=== PATIENT | female | born 1975 | race Caucasian/White ===

== ENCOUNTER 2020-03-16 11:04 | Emergency (ER) | payer OTHER, SELFPAY ==
--- NOTE | ~2020-03-16 | CT_ITS ---
EXAMINATION: CT abdomen pelvis w con DATE: 03/16/2020 13:11 INDICATION: Abdominal and low back pain TECHNIQUE: Computed tomography (CT) of the abdomen and pelvis was performed with 100 cc Omnipaque 350 intravenous contrast. Automated exposure control and iterative reconstruction technique were employe d. Exam dose: 1033.56 mGy-cm total exam DLP. COMPARISON: None. FINDINGS: The lung bases are clear of infiltrate or consolidation. Heart size is within normal range. No pericardial or pleural effusion. The liver, spleen, pancreas, adrenal glands and right kidney are unremarkable. No right urinary tract calculus or hydroureteronephrosis. There is a 2.5 x 5 mm proximal left ureteral calculus situated just beyond the left ureteropelvic macarena ction with moderately prominent left hydronephrosis and perinephric fluid and stranding. No other uri nary tract calculus or hydroureteronephrosis is evident. The urinary bladder, uterus, adnexal areas a re unremarkable. Normal caliber of the abdominal aorta. No intraperitoneal or retroperitoneal or pelvic mass lesion or lymphadenopathy. Normal appendix. No bowel obstruction, bowel wall thickening, pneumatosis or intraperitoneal free air . Included skeletal structures are unremarkable. IMPRESSION: 2.5 x 5 mm proximal left ureteral calculus with moderately prominent left left hydroneph rosis Reviewed, dictated and finalized at [facility]. Reviewed, dictated and finalized at location A. IMPRESSION: 2.5 x 5 mm proximal left ureteral calculus with moderately promine nt left left hydronephrosis
--- NOTE | ~2020-03-16 | XR_ITS ---
XR abdomen/kub 1V DATE: 03/16/2020 13:30 INDICATION: Left abdominal pain. Left proximal ureteral calcified stone TECHNIQUE: AP projection, 2 views COMPARISON: None FINDINGS: There is persistent left nephrogram and lack of IV contrast material within the collecting systems on the left compared to the right due to delay as result of obstruction by a proximal left ur eteral calcified calculus which is radiographically positive, situated at the lower L3 level. Normal excretion of contrast material by the right kidney. The the right ureter and the urinary bladd er appear unremarkable. Nonspecific bowel gas pattern, without evidence of obstruction. The psoas shadows are intact. Include d skeletal structures are unremarkable. IMPRESSION: 2.5 x 5 mm obstructing calcified proximal left ureteral calculus at lower L3 level, with delayed nephrogram on the left as a result Reviewed, dictated and finalized at [facility]. Reviewed, dictated and finalized at location A.
[2020-03-16 11:10] VITALS: BP 170/84; PULSE 82; RESP 18; TEMP 36.8; O2SAT 97
--- NOTE | 2020-03-16 11:21 | ED.ABDPAIN ---
HPI - Abdominal Pain General Chief Complaint: Abdominal Pain Stated Complaint: Lower Back Pain, Lower Abd Pain Time Seen by Provider: 03/16/20 11:18 Source: RN notes reviewed History of Present Illness HPI narrative: Patient presents emergency department from home for abdominal pain. Patient states symptoms began this morning. Pain is located in the left lower quadrant with radiation into the left back. Pain is described as sharp and stabbing associated with nausea and vomiting. Patient denies any fevers or chills chest pain shortness of breath or any other symptoms. She states she took ibuprofen this morning with minimal relief Related Data Home Medications Medication Instructions Recorded Confirmed ergocalciferol (vitamin D2) 03/16/20 Allergies Allergy/AdvReac Type Severity Reaction Status Date / Time codeine Allergy Mild Unknown Verified 03/16/20 11:15 Penicillins Allergy Mild Unknown Verified 03/16/20 11:15 zinc Allergy Mild Unknown Verified 03/16/20 11:15 Review of Systems Review of Systems: Narrative: Gen.: Denies fevers or chills ENT: Denies congestion Respiratory: Denies shortness of breath or cough CV: Denies chest pain or palpitations GI: See HPI denies burning, urgency, frequency or hematuria Musculoskeletal: Denies back pain or muscle pain Neuro: Denies numbness, tingling, weakness or focal weakness Skin: Denies rash Except as documented, all other systems reviewed and negative FOR[facility]LY [facility] Past Medical History Medical History (Updated 03/16/20 @ 15:50 by Abdifatah Bond DO) Patient denies significant medical history Social History Social History (Updated 03/16/20 @ 11:22 by Abdifatah Bond DO) Smoking packs per day: 0.25 Smoking cigarettes per day: 5.0 Gender identity (if verbalized by the patient): Male Exam Narrative: Exam Narrative: APPEARANCE: No acute distress, nontoxic, resting in bed HEENT: Normocephalic, atraumatic, OMM RESPIRATORY: No respiratory distress, clear to auscultation bilaterally with no rhonchi wheezing or rales CARDIOVASCULAR: RRR s murmur ABDOMINAL: Soft, nondistended, tender palpation left lower quadrant, no tenderness left upper quadrant, right upper quadrant right lower quadrant, no rebound or guarding, left flank tenderness MUSCULOSKELETAl: Moves all extremities. No clubbing, cyanosis or edema. NEURO: Awake and alert. Following commands, speech normal, no focal deficits SKIN:: Warm, dry. Normal Color PSYCHIATRIC: Normal affect/mood Course Course Emergency Course: Discussed with Dr. Frazier for urology presentation work-up. Reviewed CT scan and UA. This time feels patient may be discharged home with pain is under control with follow-up as an outpatient. Request Flomax be given Patient states pain is improved at this time Discussed with patient results of workup and diagnosis. Discussed need for follow-up with primary care, proper use of medication, and reasons to return to the emergency department. Patient understands and agrees to current treatment plan Vital Signs Vital signs: Vital Signs Temperature 98.2 F 03/16/20 11:10 Pulse Rate 82 03/16/20 11:10 Respiratory Rate 18 03/16/20 11:10 Blood Pressure 170/84 H 03/16/20 11:10 Pulse Oximetry 97 03/16/20 11:10 Temperature 98.2 F 03/16/20 11:10 Pulse Rate 89 03/16/20 13:20 Respiratory Rate 18 03/16/20 13:20 Blood Pressure 142/84 H 03/16/20 13:20 Pulse Oximetry 97 03/16/20 13:20 MDM - Abdominal Pain Lab Data Result diagrams: 03/16/20 11:24 03/16/20 11:24 Labs: Lab Results 03/16/20 03/16/20 03/16/20 Range/Units 11:24 11:24 11:24 WBC 13.4 H (4.5-10.0) K/mm3 RBC 4.72 (4.2-5.4) M/mm3 Hgb 14.4 (12.0-15.0) g/dL Hct 42.2 (37.0-47.0) % MCV 89.4 (80-100) fl MCH 30.5 (26-34) pg MCHC 34.1 (32-36) g/dl RDW 12.6 (11.5-14.5) % Plt Count 251 (150-375) k/mm3 MPV 10.6 H (7.4-10.4) fl Imm
[2020-03-16 11:42] LABS: Basophils Absolute Auto 0.1 K/mm3 (0.0-0.1); Basophils Percent Auto 0.5 % (0.2-1.2); Hematocrit 42.2 % (37.0-47.0); Hemoglobin 14.4 g/dL (12.0-15.0); Immature Granulocyte Absolute 0.04 K/mm3 (0.00-0.031); Immature Granulocyte Percent A 0.3 % (0-0.5); Lymphocytes Absolute Auto 1.25 K/mm3 (0.9-3.2); Lymphocytes Percent Auto 9.3 % (18.3-44.2); Mean Corpuscular HGB Conc 34.1 g/dl (32-36); Mean Corpuscular Hemoglobin 30.5 pg (26-34); Mean Corpuscular Volume 89.4 fl (80-100); Mean Platelet Volume 10.6 fl (7.4-10.4); Monocytes Percent Auto 7.2 % (2.6-8.5); Neutrophils Absolute Auto 11.1 K/mm3 (1.3-6.7); Neutrophils Percent Auto 82.7 % (45.5-73.1); Platelet Count Result 251 k/mm3 (150-375); Red Blood Count 4.72 M/mm3 (4.2-5.4); Red Cell Distribution Width 12.6 % (11.5-14.5); White Blood Count 13.4 K/mm3 (4.5-10.0)
[2020-03-16 11:49] LABS: Add Urine Microscopic? YES; Appearance Urine Cloudy (Clear); Bacteria Urine Trace /hpf; Bilirubin Urine Negative (Negative); Blood Urine Negative (Negative); Calcium Oxalate Crystals Urine Present /hpf; Color Urine Yellow (Yellow); Glucose Urine UA Negative (Negative); Ketones Urine Negative (Negative); Leukocyte Esterase Ur 1+ LEU/UL (Negative); Mucus Urine Heavy /lpf; Nitrate Urine Negative (Negative); Protein Urine 1+ mg/dL (Negative); Squamous Epithelial Cell Urine Many /hpf (Few); Urobilinogen Urine Negative mg/dL (<2.0)
[2020-03-16] MEDS: SODIUM CHLORIDE 0.9% IV 1,000 ML 999 ML IV CONT (11:59)
[2020-03-16] MEDS: ONDANSETRON INJ 4 MG/2 ML VIAL IV PUSH (11:59)
[2020-03-16 12:06] LABS: Alanine Aminotransferase 30 U/L (4-35); Albumin Level 4.8 g/dL (3.5-5.1); Alkaline Phosphatase 82 U/L (38-126); Aspartate Amino Transferase 32 U/L (14-36); Bilirubin,Total 0.7 mg/dL (0.2-1.3); Blood Urea Nitrogen 22 mg/dL (7-17); Calcium 9.2 mg/dL (8.4-10.2); Carbon Dioxide 24 mmol/L (22-30); Chloride 104 mmol/L (98-107); Estimated CRCL calculation 90 ml/min; Estimated Glomerular Filt Rate > 60; Glucose 111 mg/dL (65-105); Lipase 33 U/L (23-300); Potassium 4.3 mmol/L (3.4-5.0); Sodium 138 mmol/L (137-145)
[2020-03-16 13:20] VITALS: BP 142/84; PULSE 89; RESP 18; O2SAT 97
[2020-03-16 13:49] LABS: Lactic Acid Reflex 1.3 mmol/L (0.7-2.1)
[2020-03-16] MEDS: MORPHINE SULFATE 2 MG/ML INJ IV PUSH ×2 (14:03→14:49)
[2020-03-16] MEDS: SODIUM CHLORIDE 0.9% IV 50 ML 400 ML (14:03)
[2020-03-16] MEDS: PROMETHAZINE HCL 25 MG/ML AMPUL 12.5 MG IV PUSH (14:03)
[2020-03-16] MEDS: TAMSULOSIN HCL 0.4 MG CAPSULE PO (14:03)
== END 2020-03-16 16:16 | disposition home or self-care (01) ==
PROVIDERS: Emergency Provider Emergency Medicine
DX: N13.2 Hydronephrosis with renal and ureteral calculous obstruction (principal); N39.0 Urinary tract infection, site not specified; F17.210 Nicotine dependence, cigarettes, uncomplicated
CPT/HCPCS: 36415; 74018; 74177; 80053; 81001; 81025; 83605; 83690; 85025; 87040; 96374; 96375; 96376; 99284; A9270; J0131; J2270; J2405; J2550; J7030; Q9967

== ENCOUNTER 2020-03-19 14:21 | Outpatient (CLI) | payer OTHER, SELFPAY ==
--- NOTE | ~2020-03-19 | XR_ITS ---
XR abdomen/kub 1V 03/19/2020 14:46 Indication: Left ureteral stone and flank pain Procedure: KUB Comparison: CT and KUB dated 03/16/2020 Findings: There is calcification overlying the lower pole of the left kidney, consistent with renal s tone. No stones are identified in the expected course of the ureters. There are pelvic phleboliths. B owel gas pattern is nonobstructive. No acute osseous abnormality. Impression: 1: Left nephrolithiasis. Reviewed, dictated and finalized at location A. Impression: 1: Left nephrolithiasis.
== END 2020-03-19 14:22 | disposition home or self-care (01) ==
PROVIDERS: PCP Registered Nurse; Visit Provider Urology
DX: N20.0 Calculus of kidney (principal)
CPT/HCPCS: 74018

== ENCOUNTER 2020-03-22 09:17 | Outpatient (CLI) | payer OTHER, SELFPAY ==
[2020-03-22 10:16] LABS: Prothrombin Time 13.1 Seconds (11.1-14.7)
[2020-03-22 10:17] LABS: Partial Thromboplastin Time 27.1 SECONDS (22.3-36.8)
[2020-03-22 10:24] LABS: Beta HCG Quantitative < 2.39 mIU/ML
== END 2020-03-22 09:18 | disposition home or self-care (01) ==
LOC: ANHSURGERY 09:20
PROVIDERS: PCP Registered Nurse; Visit Provider Urology
DX: Z01.818 Encounter for other preprocedural examination (principal); N20.0 Calculus of kidney
CPT/HCPCS: 36415; 84702; 85610; 85730; 87086

== ENCOUNTER 2020-03-27 00:23 | Outpatient (CLI) | payer OTHER, SELFPAY ==
[2020-03-27 17:43] LABS: SARS-CoV-2 RNA PCR Negative
== END 2020-03-27 00:24 | disposition home or self-care (01) ==
LOC: ANHCOVIDDT 00:24
PROVIDERS: PCP Registered Nurse; Visit Provider Urology
DX: Z01.812 Encounter for preprocedural laboratory examination (principal); Z20.828 Contact with and (suspected) exposure to other viral communicable diseases
CPT/HCPCS: 87635; C9803; U0003

== ENCOUNTER 2020-03-29 01:49 | Day surgery (SDC) | payer OTHER, SELFPAY ==
[2020-03-20 15:09] VITALS: BMI 33.9
[2020-03-29] VITALS (9 sets, daily range): BP systolic 102–132; BP diastolic 69–87; PULSE 53–68; RESP 12–18; TEMP 36.1–36.8; O2SAT 96–100
--- NOTE | ~2020-03-29 | XR_ITS ---
XR abdomen/kub 1V DATE: 03/29/2020 07:34 INDICATION: Left nephrolithiasis. Prelithotripsy examination. TECHNIQUE: AP projection, 2 views COMPARISON: 03/16/2020 CT abdomen pelvis with IV contrast material 03/16/2020 and 03/19/2020 KUB FINDINGS: Previously reported 2.3 x 5 mm proximal left ureteral calculus of 03/16/2020 is now apparent ly located within a lower pole calyx of the left kidney. No other urinary tract calculus is noted. The psoas shadows are intact. No visceromegaly is evident. The bowel gas pattern is unremarkable, wit hout evidence of obstruction. IMPRESSION: Lower pole left renal calcified calculus Reviewed, dictated and finalized at [facility]. Reviewed, dictated and finalized at location A.
--- NOTE | 2020-03-29 07:00 | WPDHPUPDATE1 ---
History and Physical Update Update Date/Time: 03/29/20 07:00 History and Physical has been reviewed, including an updated exam of the patient. There are NO changes in the patient's condition. Risks, benefits, and alternatives have been discussed and questions answered. Patient agrees to proceed with procedure.
[2020-03-29] MEDS: LACTATED RINGERS 1,000 ML 30 ML IV CONT ×2 (08:20→10:37)
--- NOTE | 2020-03-29 08:33 | WPDANESEPPF ---
Anes - Initial Pre Proc Eval Procedure: Operation Date: 03/29/20 09:30 Proposed Procedures p Left Extracorporeal Shock Wave Lithotripsy - Otoniel Baeza MD Date/Time: 03/29/20 08:33 Surgeon: Otoniel Baeza MD Pre Op Diagnosis: kidney stone Patient Data Age: 44 Gender: F Height: 5 ft 6 in Weight: 91.2 kg Allergies Allergy/AdvReac Type Severity Reaction Status Date / Time sulfamethoxazole Allergy Intermediate Rash Verified 03/29/20 08:06 [From Bactrim] trimethoprim [From Bactrim] Allergy Intermediate Rash Verified 03/29/20 08:06 Penicillins Allergy Mild RASH, Verified 03/29/20 08:06 VOMITING codeine AdvReac Mild VISUAL Verified 03/29/20 08:06 DISTURBANCE zinc AdvReac Mild UPSET Verified 03/29/20 08:06 STOMACH Home Medications Medication Instructions Recorded Confirmed Type hydrocodone-acetaminophen 1 tablet PO Q4H PRN #10 tablet 03/16/20 03/20/20 Rx ibuprofen [IBU] 600 mg PO Q6H PRN #20 tablet 03/16/20 03/29/20 Rx tamsulosin [Flomax] 0.4 mg PO DAILY #5 cap 03/16/20 03/29/20 Rx cyanocobalamin (vitamin B-12) 500 mcg PO DAILY 03/20/20 03/29/20 History [Vitamin B-12] ergocalciferol (vitamin D2) 50,000 unit PO WEEKLY 03/20/20 03/29/20 History multivitamin 1 tablet PO DAILY 03/20/20 03/29/20 History Patient hx anesthesia problems: none Family hx anesthesia problems: none PMFSH Past Medical History Medical History Anxiety GERD (gastroesophageal reflux disease) Hx of migraines Patient denies significant medical history Social History Social History Smoking packs per day: 0.25 Smoking cigarettes per day: 5.0 Gender identity (if verbalized by the patient): Male Anes - Eval Final PreProcedure Day of Procedure 03/29/20 08:33 Patient weight: obese Heart: regular rate and rhythm Lungs: decreased breath sounds Airway: Mallampati scale class II Neurological: alert and oriented Last oral intake: >/= 8 hours ASA classification: III Emergent: no Anesthetic plan: proceed Anesthesia type and monitoring: general LMA and standard monitoring Informed Consent: The patient's anesthetic plan and its attendant risks and benefits were discussed with the patient/family/POA. Questions were solicited and answers provided to the satisfaction of the patient/family/POA.
[2020-03-29] MEDS: levoFLOXacin 500 MG/D5W 100 ML 500 MG/100 ML BAG 100 MG IVPB (09:53)
--- NOTE | 2020-03-29 10:07 | PM.PROC ---
Procedure Note - Detailed Date of procedure: 03/29/20 Pre-op diagnosis: kidney stone Post-op diagnosis: same Procedure performed: Left ESWL Description of procedure: The patient was brought to the operative suite where she was placed in the supine position on the Dornier lithotripsy table. The focal point of the lithotripter was placed at a 5mm left renal calculus. A total of 2500 shocks were delivered at a power setting of 4. There appeared to be good fragmentation of the stone. The patient tolerated the procedure well and was taken to the recovery room in good condition. Anesthesia: GLMA Surgeon: Otoniel Baeza MD Estimated blood loss (mL): 0 Drains: No Packing: No Pathology: none sent Complications: No immediate complications Condition: stable Disposition: PACU
[2020-03-29] MEDS: KETOROLAC 30 MG/ML VIAL (*BKC) IV PUSH (10:30)
== END 2020-03-29 12:38 | disposition home or self-care (01) ==
PROVIDERS: PCP Registered Nurse; Visit Provider Urology
PROC: (CPT 50590; principal; 2020-03-29 09:30)
DX: N20.0 Calculus of kidney (principal); K21.9 Gastro-esophageal reflux disease without esophagitis; F41.9 Anxiety disorder, unspecified; F17.210 Nicotine dependence, cigarettes, uncomplicated; E66.9 Obesity, unspecified; Z68.32 Body mass index [BMI] 32.0-32.9, adult
CPT/HCPCS: 50590; 74018; A9270; J1885; J1956; J2405; J2704; J3010; J7030; J7120

== ENCOUNTER 2020-04-12 13:06 | Outpatient (CLI) | payer OTHER, SELFPAY ==
--- NOTE | ~2020-04-12 | XR_ITS ---
EXAMINATION: XR abdomen/kub 1V DATE: 04/12/2020 13:33 INDICATION: Left kidney stone TECHNIQUE: A supine view of the abdomen on 2 radiographs was obtained. COMPARISON: KUB dated 03/29/2020 FINDINGS: 4 mm stone at the lower pole of the left kidney. There are few phleboliths in the right hemipelvis. M oderate amount of stool scattered throughout the colon. No dilated loops of gas-filled bowel to sugge st obstruction. Mild lumbar levocurvature. IMPRESSION: 1. Unchanged 4 mm stone at the lower pole of the left kidney. Reviewed, dictated and finalized at location A.
== END 2020-04-12 13:07 | disposition home or self-care (01) ==
LOC: ANHIMG 13:09
PROVIDERS: PCP Registered Nurse; Visit Provider Urology
DX: N20.0 Calculus of kidney (principal)
CPT/HCPCS: 74018

== ENCOUNTER 2020-11-10 04:53 | Emergency (ER) | payer OTHER, SELFPAY ==
--- NOTE | ~2020-11-10 | XR_ITS ---
XR abdomen/kub 1V 11/10/2020 05:53 Indication: Left flank pain Procedure: KUB Comparison: Comparison to multiple prior studies sequentially, with oldest reviewed study dated 03/19. Findings: There is a 5 mm calcification at the L2 level, suspicious for UPJ stone. Bowel gas pattern nonobstructive. Moderate colonic fecal loading. No acute osseous abnormality. Impression: 1: Calcification measuring 5 mm at the L2 level on the left, suspicious for UPJ stone. Reviewed, dictated and finalized at location A. TION AGENT Impression: 1: Calcification measuring 5 mm at the L2 level on the left, suspicious for UPJ stone.
--- NOTE | ~2020-11-10 | CT_ITS ---
EXAMINATION: CT abdomen pelvis wo con DATE: 11/10/2020 05:46 INDICATION: Left flank pain TECHNIQUE: Computed tomography (CT) of the abdomen and pelvis was performed without intravenous contr ast. The dose-length product was 1091.49 mGy-cm. Automated exposure control and iterative reconstruct ion technique were employed. COMPARISON: CT dated 03/16/2020. FINDINGS: Lung bases are unremarkable. Heart size normal. No significant pleural or pericardial effus ion. No significant vascular abnormality. There is a 5 mm proximal left ureteral stone near the expected location of the UVJ with moderate left hydronephrosis. There is a 2 mm nonobstructing left renal stone. There is elevation of the right diaphragm. The liver, spleen, pancreas, adrenal glands and right kidn ey are unremarkable. No lymphadenopathy. No significant vascular abnormality. Appendix size is border line, although there are no secondary findings to suggest appendicitis. There is moderate lower thora cic spondylosis. IMPRESSION: 1. Proximal left ureteral stone measuring 5 mm near the expected location of the UVJ. Moderate left h ydronephrosis. 2: Nonobstructing left renal stone measuring 2 mm. Reviewed, dictated and finalized at location A. L DELIVERY DRIVER IMPRESSION: 1. Proximal left ureteral stone measuring 5 mm near the expected location of th e UVJ. Moderate left hydronephrosis. 2: Nonobstructing left renal stone measuring 2 mm.
[2020-11-10 05:00] VITALS: BP 159/97; PULSE 96; RESP 20; TEMP 36.5; O2SAT 99
--- NOTE | 2020-11-10 05:09 | ED.ABDPAIN ---
HPI - Abdominal Pain General Chief Complaint: Abdominal Pain Stated Complaint: i think i have a kidney stone. left side pain Time Seen by Provider: 11/10/20 04:56 Source: patient Mode of arrival: ambulatory Limitations: no limitations History of Present Illness HPI narrative: This patient is a 45 year old female with history of kidney stones who presents for evaluation of left flank pain. She reports having mild left flank pain intermittently for 1.5 week. She developed worsening pain at 2 am this morning. She reports this pain has been constant now. She had nausea but it has now resolved. She denies urinary symptoms, fever . She took tylenol 500 mg at midnight. She reports her pain is currently 7/10. Her urologist is Dr. Baeza. She is scheduled for a KUB next week and she has an appointment with him in November. MD elicited complaint: flank pain Pertinent past history: kidney stones Onset (ago): week(s) (1) Pain Consistency: intermittent Location: L flank Radiation: LLQ Exacerbating factors: nothing Relieving factors: nothing Related Data Home Medications Medication Instructions Recorded Confirmed tamsulosin [Flomax] 0.4 mg PO HS 11/12/20 11/12/20 Allergies Allergy/AdvReac Type Severity Reaction Status Date / Time sulfamethoxazole Allergy Intermediate Rash Verified 11/12/20 12:08 [From Bactrim] trimethoprim [From Bactrim] Allergy Intermediate Rash Verified 11/12/20 12:08 Penicillins Allergy Mild RASH, Verified 11/12/20 12:08 VOMITING codeine AdvReac Mild VISUAL Verified 11/12/20 12:08 DISTURBANCE zinc AdvReac Mild UPSET Verified 11/12/20 12:08 STOMACH Review of Systems Review of Systems: All systems reviewed & are unremarkable except as noted in HPI and below Constitutional: Constitutional: Denies chills and Denies fever(s) Cardiovascular: Cardiovascular: Denies chest pain Respiratory: Respiratory: Denies dyspnea Gastrointestinal: Gastrointestinal: Reports abdominal pain, Denies diarrhea, Reports nausea and Denies vomiting Genitourinary: Genitourinary: Denies hematuria, Denies dysuria and Reports flank pain Musculoskeletal: Musculoskeletal: Reports back pain PMFSH Past Medical History Medical History (Updated 11/11/20 @ 00:00 by Background Daemon) Anxiety GERD (gastroesophageal reflux disease) Hx of migraines Patient denies significant medical history Surgical History Surgical History (Updated 11/10/20 @ 05:21 by Jocelyne Kearney MD) H/O lithotripsy Social History Social History Smoking packs per day: 0.25 Smoking cigarettes per day: 5.0 Years smoked: 9 Smoking pack-years: 2.25 Smoking status: Current every day smoker Additional smoking assessment comments: STATES 1PK/WEEK Alcohol intake: current Drinks per week: 3 Substance use: never Substance use type: does not use Gender identity (if verbalized by the patient): Male Spiritual care concerns: No Exam Const: General: no acute distress and alert Orientation/consciousness: patient oriented x3 Eyes: EOM: EOMs intact bilaterally Resp: Effort & Inspection: normal respiratory effort and no retractions Auscultation: clear to auscultation bilaterally Cardio: Rate: regular rate Rhythm: regular rhythm Heart sounds: no murmurs GI: GI Palp: Yes Soft to palpation, No Tenderness to palpation present (GI) and No Guarding due to palpation present (GI) Auscultation: normal bowel sounds : General: Yes no CVA tenderness Skin: General skin exam: normal color Rashes: no rashes Neuro: General: patient oriented x3 and moves all extremities Extrem: General: normal to inspection Psych: Mental Status: mental status grossly normal Affect: normal affect Course Reevaluation(s) Reevaluation #1: Patient reports her pain is much improved. I discussed CT showing 5 mm stone. She is comfortable with discharge home and follow
[2020-11-10] MEDS: LACTATED RINGERS 1,000 ML 999 ML IV CONT (05:12)
[2020-11-10 05:28] LABS: Basophils Absolute Auto 0.1 K/mm3 (0.0-0.1); Basophils Percent Auto 0.6 % (0.2-1.2); Hematocrit 40.4 % (37.0-47.0); Immature Granulocyte Absolute 0.03 K/mm3 (0.00-0.031); Immature Granulocyte Percent A 0.3 % (0-0.5); Lymphocytes Absolute Auto 1.59 K/mm3 (0.9-3.2); Lymphocytes Percent Auto 14.7 % (18.3-44.2); Mean Corpuscular HGB Conc 34.7 g/dl (32-36); Mean Corpuscular Hemoglobin 30.4 pg (26-34); Mean Corpuscular Volume 87.8 fl (80-100); Mean Platelet Volume 10.2 fl (7.4-10.4); Monocytes Absolute Auto 0.8 K/mm3 (0.1-0.6); Monocytes Percent Auto 7.6 % (2.6-8.5); Neutrophils Absolute Auto 8.3 K/mm3 (1.3-6.7); Neutrophils Percent Auto 76.8 % (45.5-73.1); Platelet Count Result 260 k/mm3 (150-375); Red Cell Distribution Width 12.2 % (11.5-14.5); White Blood Count 10.8 K/mm3 (4.5-10.0)
[2020-11-10 05:34] LABS: Add Urine Microscopic? YES; Appearance Urine Cloudy (Clear); Bacteria Urine Trace /hpf; Bilirubin Urine Negative (Negative); Blood Urine 1+ (Negative); Calcium Oxalate Crystals Urine Present /hpf; Color Urine Yellow (Yellow); Glucose Urine UA Negative (Negative); Ketones Urine Negative (Negative); Leukocyte Esterase Ur Trace LEU/UL (Negative); Mucus Urine Heavy /lpf; Nitrate Urine Negative (Negative); Protein Urine 1+ mg/dL (Negative); Specific Grav Ur 1.026 (1.001-1.035); Squamous Epithelial Cell Urine Many /hpf (Few); Urobilinogen Urine Negative mg/dL (<2.0)
--- NOTE | 2020-11-10 05:39 | PC.NURSE ---
Patient being taken to CT.
[2020-11-10 05:41] LABS: Alanine Aminotransferase 34 U/L (4-35); Albumin Level 4.4 g/dL (3.5-5.1); Alkaline Phosphatase 87 U/L (38-126); Anion Gap 9 mmol/L (8-16); Aspartate Amino Transferase 30 U/L (14-36); Bilirubin,Total 0.4 mg/dL (0.2-1.3); Blood Urea Nitrogen 22 mg/dL (7-17); Calcium 9.2 mg/dL (8.4-10.2); Carbon Dioxide 27 mmol/L (22-30); Chloride 103 mmol/L (98-107); Estimated CRCL calculation 89 ml/min; Estimated Glomerular Filt Rate > 60; Glucose 124 mg/dL (65-105); Lipase 50 U/L (23-300); Potassium 3.8 mmol/L (3.4-5.0); Sodium 139 mmol/L (137-145)
[2020-11-10] MEDS: TAMSULOSIN HCL 0.4 MG CAPSULE PO (05:57)
[2020-11-10] MEDS: HYDROmorphone HCL INJ (*CRX) 1 MG/ML SYR IV PUSH (06:30)
[2020-11-10] MEDS: ONDANSETRON INJ 4 MG/2 ML VIAL IV PUSH (06:30)
[2020-11-10 06:34] VITALS: BP 128/88; PULSE 80; RESP 18; O2SAT 98
[2020-11-10 07:00] VITALS: BP 119/82; PULSE 71; RESP 18; O2SAT 97
== END 2020-11-10 07:02 | disposition home or self-care (01) ==
PROVIDERS: Emergency Provider General Practice; PCP Registered Nurse
DX: N13.2 Hydronephrosis with renal and ureteral calculous obstruction (principal); K21.9 Gastro-esophageal reflux disease without esophagitis; F17.210 Nicotine dependence, cigarettes, uncomplicated; Z87.442 Personal history of urinary calculi
CPT/HCPCS: 36415; 74018; 74176; 80053; 81001; 81025; 83690; 85025; 87086; 87088; 96361; 96374; 96375; 99284; A9270; J0131; J1170; J2405; J7120

== ENCOUNTER 2020-11-12 07:59 | Outpatient (CLI) | payer OTHER, SELFPAY ==
[2020-11-12 18:38] LABS: SARS-CoV-2 RNA PCR Negative
== END 2020-11-12 08:00 | disposition home or self-care (01) ==
LOC: ANHCOVIDDT 08:00
PROVIDERS: PCP Registered Nurse; Visit Provider Urology
DX: Z01.812 Encounter for preprocedural laboratory examination (principal); Z20.822 Contact with and (suspected) exposure to COVID-19
CPT/HCPCS: C9803; U0003; U0005

== ENCOUNTER 2020-11-12 11:47 | Outpatient (CLI) | payer OTHER, SELFPAY ==
[2020-11-12 13:14] LABS: INR 1.1; Prothrombin Time 14.3 Seconds (11.1-14.7)
[2020-11-12 13:15] LABS: Partial Thromboplastin Time 31.5 SECONDS (22.3-36.8)
[2020-11-12 13:32] LABS: Beta HCG Quantitative < 2.39 mIU/ML
== END 2020-11-12 11:48 | disposition home or self-care (01) ==
LOC: ANHSURGERY 11:49
PROVIDERS: PCP Registered Nurse; Visit Provider Urology
DX: Z01.818 Encounter for other preprocedural examination (principal); N20.1 Calculus of ureter
CPT/HCPCS: 36415; 84702; 85610; 85730; J1200; J2405; J2704

== ENCOUNTER 2020-11-15 01:20 | Day surgery (SDC) | payer OTHER, SELFPAY ==
[2020-11-12 12:10] VITALS: BP 140/94; PULSE 88; RESP 18; TEMP 37.3; O2SAT 98
[2020-11-12 12:31] VITALS: BMI 33.6
[2020-11-15] VITALS (8 sets, daily range): BP systolic 122–148; BP diastolic 77–99; PULSE 76–86; RESP 16–20; TEMP 36.6–36.8; O2SAT 93–99
--- NOTE | ~2020-11-15 | XR_ITS ---
EXAMINATION: XR abdomen/kub 1V EXAM DATE: 11/15/2020 08:20 INDICATION: Prelithotripsy. TECHNIQUE: Frontal projection(s) of the abdomen for interpretation. Comparison is made to prior exami nation from 11/10/2020. FINDINGS: Previously seen approximately 5 mm calcification projecting over proximal aspect of the lef t ureter is still identified, indicated. No other suspicious calcifications. There are mild bony dege nerative changes. Moderate amount of colonic gas and stool. Minimal lumbar levocurvature. IMPRESSION: 1. Left proximal ureteral stone unchanged. Reviewed, dictated and finalized at location A. AT TANKER DRIVER
[2020-11-15] MEDS: LACTATED RINGERS 1,000 ML 30 ML IV CONT ×2 (09:10→11:09)
--- NOTE | 2020-11-15 09:22 | WPDANESEPPF ---
Anes - Initial Pre Proc Eval Procedure: Operation Date: 11/15/20 09:30 Proposed Procedures p Left Ureteral Extracorporeal Shock Wave Lithotripsy - López Duque MD Date/Time: 11/15/20 09:22 Surgeon: López Duque MD Pre Op Diagnosis: left ureteral stone Patient Data Age: 45 Gender: F Height: 5 ft 6 in Weight: 93.5 kg Last Vital Signs Temp 98.2 F 11/15/20 08:18 Pulse 80 11/15/20 08:18 Resp 18 11/15/20 08:18 BP 145/84 H 11/15/20 08:18 Pulse Ox 99 11/15/20 08:18 Allergies Allergy/AdvReac Type Severity Reaction Status Date / Time sulfamethoxazole Allergy Intermediate Rash Verified 11/15/20 08:57 [From Bactrim] trimethoprim [From Bactrim] Allergy Intermediate Rash Verified 11/15/20 08:57 Penicillins Allergy Mild RASH, Verified 11/15/20 08:57 VOMITING codeine AdvReac Mild VISUAL Verified 11/15/20 08:57 DISTURBANCE zinc AdvReac Mild UPSET Verified 11/15/20 08:57 STOMACH Home Medications Medication Instructions Recorded Confirmed Type cephalexin [Keflex] 500 mg PO Q8H 7 Days #21 cap 11/10/20 11/15/20 Rx ondansetron HCl [Zofran] 4 mg PO Q6H PRN #10 tablet 11/10/20 11/15/20 Rx tamsulosin [Flomax] 0.4 mg PO HS 11/12/20 11/15/20 History Patient hx anesthesia problems: none Family hx anesthesia problems: none [facility] Past Medical History Medical History (Updated 11/11/20 @ 00:00 by Background Daarik) Anxiety GERD (gastroesophageal reflux disease) Hx of migraines Patient denies significant medical history Surgical History Surgical History (Updated 11/10/20 @ 05:21 by Jocelyne Kearney MD) H/O lithotripsy Social History Social History Smoking packs per day: 0.25 Smoking cigarettes per day: 5.0 Years smoked: 9 Smoking pack-years: 2.25 Smoking status: Current every day smoker Additional smoking assessment comments: STATES 1PK/WEEK Alcohol intake: current Drinks per week: 3 Substance use: never Substance use type: does not use Living arrangements: with family Gender identity (if verbalized by the patient): Male Spiritual care concerns: No Anes - Eval Final PreProcedure Day of Procedure 11/15/20 09:22 Patient weight: obese Heart: regular rate and rhythm Lungs: clear to auscultation Airway: Mallampati scale class II Neurological: alert and oriented Last oral intake: >/= 8 hours ASA classification: III Emergent: no Anesthetic plan: proceed Anesthesia type and monitoring: general GIVS and standard monitoring Informed Consent: The patient's anesthetic plan and its attendant risks and benefits were discussed with the patient/family/POA. Questions were solicited and answers provided to the satisfaction of the patient/family/POA.
--- NOTE | 2020-11-15 09:35 | WPDHPUPDATE1 ---
History and Physical Update Update Date/Time: 11/15/20 09:35 History and Physical has been reviewed, including an updated exam of the patient. There are NO changes in the patient's condition. Risks, benefits, and alternatives have been discussed and questions answered. Patient agrees to proceed with procedure.
[2020-11-15] MEDS: ceFAZolin 2 GM/D5W 50 ML 2 GM/50 ML BAG IVPB (09:40)
--- NOTE | 2020-11-15 10:26 | P.OP_ITS ---
Procedure Note - Detailed Date of procedure: 11/15/20 Pre-op diagnosis: left ureteral stone Post-op diagnosis: same Procedure performed: ESWL left ureteral calculus Description of procedure: Patient is taken the operative suite and correctly i dentified. Once anesthesia was obtained stone was localized in both planes. Three thousand shocks cream the stone. Patient tolerated procedure well without any complications and was taken recovery stable condition. Skin standard post litho instruction to follow up for blood 10 days with KUB. Anesthesia: GLMA Surgeon: López Duque MD Drains: No Packing: No Pathology: none sent Complications: No immediate complications Condition: stable Disposition: PACU
[2020-11-15] MEDS: ONDANSETRON INJ 4 MG/2 ML VIAL IV PUSH (10:59)
[2020-11-15] MEDS: fentaNYL CITRATE INJ (*CRX) 100 MCG/2 ML VIAL 25 MCG IV PUSH ×2 (11:00→11:10)
[2020-11-15] MEDS: diphenhydrAMINE HCl INJ 50 MG/ML VIAL 12.5 MG IV PUSH (11:42)
== END 2020-11-15 12:30 | disposition home or self-care (01) ==
PROVIDERS: Family Provider Family Medicine; PCP Registered Nurse; Visit Provider Urology
PROC: (CPT 50590; principal; 2020-11-15 09:30)
DX: N20.1 Calculus of ureter (principal); F17.210 Nicotine dependence, cigarettes, uncomplicated; E66.9 Obesity, unspecified; Z68.33 Body mass index [BMI] 33.0-33.9, adult
CPT/HCPCS: 50590; 36415; 74018; 84702; 85610; 85730; C9803; J0690; J1200; J2250; J2405; J2704; J3010; J7120; U0003; U0005

== ENCOUNTER 2020-12-02 09:39 | Outpatient (CLI) | payer OTHER, SELFPAY ==
--- NOTE | ~2020-12-02 | XR_ITS ---
EXAMINATION: XR abdomen/kub 1V INDICATION: Left ureteral stone TECHNIQUE: Supine views of the abdomen were obtained on 2 radiographs. COMPARISON: 11/15/2020 FINDINGS: The previously described left proximal ureteral stone is not definitely identified. No ston es or stone fragments are identified along the expected course of the ureter. The bowel gas pattern i s normal. Phleboliths are noted in the right pelvis. IMPRESSION: 1. Previously described left proximal ureteral stone not identified, consistent with interval passage or treatment. Reviewed, dictated and finalized at location A. LIGHT ASSEMBLER
== END 2020-12-02 09:40 | disposition home or self-care (01) ==
LOC: ANHIMG 09:51
PROVIDERS: PCP Registered Nurse; Visit Provider Urology
DX: N20.1 Calculus of ureter (principal)
CPT/HCPCS: 74018

== ENCOUNTER → 2021-01-03 14:44 | Outpatient (CLI) | payer OTHER, SELFPAY ==
--- NOTE | ~2021-01-03 | MM_ITS ---
EXAMINATION: MM screening ronnie BI w boubacar HISTORY: Screening mammogram TECHNIQUE: Craniocaudal and mediolateral oblique 3-D tomosynthesis images were obtained and synthetic 2-D images were generated. CAD analysis was submitted and interpreted. COMPARISON: 09/22/2019, 05/30/2018 bilateral digital screening mammogram examinations BREAST PARENCHYMAL COMPOSITION: The breasts are almost entirely fatty. FINDINGS: There is no evidence of suspicious mass, calcification, or architectural distortion to sugg est malignancy in either breast. There has been no suspicious interval change. IMPRESSION: 1. No mammographic evidence of malignancy. 2. Recommend routine screening mammography in one year. BI-RADS Category 1: Negative Reviewed, dictated and finalized at location A. RMAN
== END ==
PROVIDERS: PCP Registered Nurse; Visit Provider Registered Nurse
DX: Z12.31 Encounter for screening mammogram for malignant neoplasm of breast (principal)
CPT/HCPCS: 77063; 77067

== ENCOUNTER 2021-06-02 08:26 | Outpatient (CLI) | payer OTHER, SELFPAY ==
--- NOTE | ~2021-06-02 | XR_ITS ---
EXAMINATION: XR abdomen/kub 1V INDICATION: Left ureteral stone TECHNIQUE: Supine views of the abdomen were obtained on 2 radiographs. COMPARISON: 12/02/2020 FINDINGS: No definite urolithiasis is identified. The bowel gas pattern is normal. Phleboliths are no roman in the right pelvis. IMPRESSION: 1. No definite urolithiasis identified. Reviewed, dictated and finalized at location B.
== END 2021-06-02 08:27 | disposition home or self-care (01) ==
PROVIDERS: PCP Registered Nurse; Visit Provider Urology
DX: N20.1 Calculus of ureter (principal)
CPT/HCPCS: 74018

== ENCOUNTER → 2021-07-07 12:43 | Outpatient (CLI) | payer OTHER, SELFPAY ==
--- NOTE | ~2021-07-07 | CT_ITS ---
EXAMINATION: CT abdomen pelvis wo con DATE: 07/07/2021 13:12 INDICATION: Left flank pain TECHNIQUE: Computed tomography (CT) of the abdomen and pelvis was performed without intravenous contr ast. The dose-length product (DLP) was 1120.33 mGy-cm. Automated exposure control and iterative recon struction technique were employed. COMPARISON: 11/10/2020 FINDINGS: The lung bases are clear. The heart size is normal. The liver, spleen, pancreas, gallbladde r, and adrenal glands are normal. The kidneys are unremarkable. No stones are identified in the kidne ys, ureters, or bladder. There is no hydronephrosis or hydroureter. No pathologically enlarged abdomi nal or pelvic lymph nodes are identified. There is no free intraperitoneal gas or evidence of bowel o bstruction. The appendix is normal. There is mild lumbar spondylosis. IMPRESSION: 1. No CT correlate for the patient's symptoms. Reviewed, dictated and finalized at location A.
--- NOTE | ~2021-07-07 | XR_ITS ---
EXAMINATION: XR abdomen/kub 1V INDICATION: Left flank pain TECHNIQUE: Supine views of the abdomen were obtained on 2 radiographs. COMPARISON: 06/02/2021 FINDINGS: There are phleboliths of the right pelvis. No urolithiasis. The bowel gas. The visualized l lenore bases are clear. IMPRESSION: 1. No radiographic correlate for the patient's symptoms. Reviewed, dictated and finalized at location A.
== END ==
PROVIDERS: PCP Registered Nurse; Visit Provider Nurse Practitioner Adult Health
DX: R10.9 Unspecified abdominal pain (principal)
CPT/HCPCS: 74018; 74176

== ENCOUNTER 2022-03-26 10:48 | Outpatient (CLI) | payer OTHER, SELFPAY ==
--- NOTE | ~2022-03-26 | MR_ITS ---
EXAMINATION: MR shoulder LT wo con DATE: 03/26/2022 11:23 INDICATION: Left shoulder pain TECHNIQUE: Magnetic resonance imaging (MRI) of the left shoulder was performed without intravenous co ntrast. Sequences included axial PD-weighted FS FSE, coronal oblique PD-weighted FS FSE, coronal obli que T2-weighted FS FSE, sagittal PD-weighted FS FSE, and sagittal T1-weighted SE. COMPARISON: None. FINDINGS: Coracoacromial arch: The acromion undersurface is curved in morphology (type II). The coracoacromial ligament is normal. M ild acromioclavicular osteoarthritis. Rotator cuff: Mild supraspinatus tendinopathy without discrete tear. The infraspinatus and teres minor tendons are normal. Minimal subscapularis tendinopathy without discrete tear. Normal rotator cuff muscle bulk an d signal. Biceps tendon, glenoid labrum and glenohumeral cartilage: Long head of the biceps tendon is normal. There is a normal accessory head of the long head biceps te ndon which appears to fuse with the joint capsule and superior glenohumeral ligament at the cephalad aspect of the intertubercular groove. There is a tear at the posterior superior glenoid labrum with m inimal residual labral tissue remaining attached to the rim of the glenoid. There is small amount of tissue which may represent a portion of the torn labrum which extends more centrally between the post erior superior articular surface of the glenoid and the humeral head. Mild partial-thickness cartilag e loss with smooth chondral surface along the cephalad half of the glenoid. Fluid: Physiologic amount of fluid in the glenohumeral joint and biceps tendon sheath. No loose osteochondr al bodies. Small amount of fluid in the subacromial/subdeltoid bursa consistent with mild bursitis. Bones: There appears to be some laxity glenohumeral joint with slight posterior subluxation of the humeral h ead with respect to the glenoid with small amount of fluid the articular surface of the re lative widening anterior glenoid humeral joint space. Bone marrow signal is normal. No fracture or pa thologic marrow replacing process. IMPRESSION: 1. Mild glenohumeral osteoarthritis with tear of the posterior superior glenoid labrum. 2. Mild supraspinatus and minimal subscapularis tendinopathy without discrete tear. Reviewed, dictated and finalized at location B. IMPRESSION: 1. Mild glenohumeral osteoarthritis with tear of the posterior superior glenoid labrum. 2. Mild supraspinatus and minimal subscapularis tendinopathy without discrete t ear.
== END 2022-03-26 10:49 ==
PROVIDERS: PCP Orthopaedic Surgery; Visit Provider Registered Nurse
DX: M25.512 Pain in left shoulder (principal); G89.29 Other chronic pain; M19.012 Primary osteoarthritis, left shoulder; M75.82 Other shoulder lesions, left shoulder
CPT/HCPCS: 73221

== ENCOUNTER → 2023-05-18 07:03 | Outpatient (CLI) | payer OTHER, SELFPAY ==
--- NOTE | ~2023-05-18 | MM_ITS ---
EXAMINATION: MM screening ronnie BI w boubacar HISTORY: Screening mammogram TECHNIQUE: Craniocaudal and mediolateral oblique 3-D tomosynthesis images were obtained and synthetic 2-D images were generated. CAD analysis was submitted and interpreted. COMPARISON: 01/03/2021, 09/22/2019, 05/30/2018 bilateral screening mammogram examinations BREAST PARENCHYMAL COMPOSITION: The breasts are almost entirely fatty. FINDINGS: There is no evidence of suspicious mass, calcification, or architectural distortion to sugg est malignancy in either breast. There has been no suspicious interval change. IMPRESSION: 1. No mammographic evidence of malignancy. 2. Recommend routine screening mammography in one year. BI-RADS Category 1: Negative Reviewed, dictated and finalized at location L.
--- NOTE | ~2023-05-18 | US_ITS ---
Thyroid ultrasound. Clinical History: Enlarged thyroid Findings: Real-time sonography of the thyroid gland was performed. The right lobe measures 5.1 x 1.8 x 2.1 cm. The left lobe measures 4.2 x 1.5 x 1.6 cm. The isthmus is 5 mm in AP diameter. No discrete thyroid nodule seen. Impression: Prominent thyroid gland without discrete nodule. Correlate with thyroid function tests. Reviewed, dictated and finalized at [facility]. Impression: Prominent thyroid gland without discrete nodule. Correlate with thyroid functio n tests.
== END ==
PROVIDERS: PCP Registered Nurse; Visit Provider Registered Nurse
DX: Z12.31 Encounter for screening mammogram for malignant neoplasm of breast (principal); E04.9 Nontoxic goiter, unspecified
CPT/HCPCS: 76536; 77063; 77067

== ENCOUNTER 2024-06-09 16:54 | Emergency (ER) | payer OTHER, SELFPAY ==
--- NOTE | ~2024-06-09 | XR_ITS ---
EXAMINATION: XR shoulder LT min 2V, XR humerus LT DATE: 06/09/2024 19:50 INDICATION: Left rotator cuff injury post fall TECHNIQUE: 1. AP internally and externally rotated, AP oblique externally rotated and transscapular Y views of t he affected shoulder were obtained. 2. AP and lateral views of the left humerus were obtained. COMPARISON: None FINDINGS: Normal alignment. No fracture. Glenohumeral joint is normal. Mild acromioclavicular osteoarthritis. Additional mild osteoarthritis at the ulnotrochlear articulation at the left elbow. No elbow joint ef fusion. Soft tissues are unremarkable. Visualized portions of the lungs are clear. 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 No acute osseous abnormality. Reviewed, dictated and finalized at location A. 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 No acute os seous abnormality.
--- NOTE | ~2024-06-09 | XR_ITS ---
EXAMINATION: XR knee LT 3V DATE: 06/09/2024 19:50 INDICATION: Abrasions and swelling to the left knee post fall TECHNIQUE: Anteroposterior, 2 oblique and crosstable lateral views of the left knee were obtained COMPARISON: None. FINDINGS: Alignment is normal. No fracture. Joint spaces appear normal on nonweightbearing imaging with no ost eophytosis. No joint effusion/layering lipohemarthrosis. Prepatellar soft tissue swelling.. IMPRESSION: 1. Patellar soft tissue swelling. No joint effusion or osseous abnormality. Reviewed, dictated and finalized at location A.
--- NOTE | ~2024-06-09 | XR_ITS ---
EXAMINATION: XR hand LT min 3V DATE: 06/09/2024 19:50 INDICATION: Fall onto outstretched left hand TECHNIQUE: Posteroanterior, oblique and lateral views of the left hand were obtained. COMPARISON: None. FINDINGS: Bone alignment is normal. No fracture. Tiny round corticated heterotopic ossicle versus loose osteoch ondral body at the ulnar side of the wrist joint near the tip of the ulnar styloid process. Mild oste oarthritis at a few of the interphalangeal joints. Soft tissues are unremarkable. IMPRESSION: 1. No acute osseous abnormality. Reviewed, dictated and finalized at location A.
--- NOTE | ~2024-06-09 | XR_ITS ---
EXAMINATION: XR toe 1st LT min 2V DATE: 06/09/2024 19:50 INDICATION: Fall with ecchymosis at the left great toe TECHNIQUE: Dorsal plantar, lateral and oblique views of the left great toe were obtained. COMPARISON: None FINDINGS: Small nondisplaced likely avulsion fracture fragment at the lateral base of the first distal phalanx. Fracture involves the articular surface with no significant fracture gap or incongruity along the ar ticular surface. No other fractures identified. Mild polyarticular osteoarthritis at the first metata rsophalangeal and a few the visualized tarsal metatarsal and interphalangeal joints. IMPRESSION: Small nondisplaced intra-articular likely collateral ligament avulsion fracture at the la teral base of the left first distal phalanx. Reviewed, dictated and finalized at location A. IMPRESSION: Small nondisplaced intra-articular likely collateral ligament avuls ion fracture at the lateral base of the left first distal phalanx.
--- NOTE | ~2024-06-09 | XR_ITS ---
EXAMINATION: XR knee RT 3V DATE: 06/09/2024 19:50 INDICATION: Abrasions at the right knee pain post fall TECHNIQUE: Anteroposterior, oblique and crosstable lateral views of the right knee were obtained COMPARISON: None. FINDINGS: Alignment is normal. No fracture. Joint spaces appear normal on nonweightbearing imaging. There are however tiny marginal osteophytes at the rim of the medial tibial plateau consistent with at least mi nimal osteoarthritis. No joint effusion/layering lipohemarthrosis. Soft tissues are unremarkable. No radiopaque foreign bodies identified. IMPRESSION: 1. No right knee joint effusion or acute osseous abnormality. Reviewed, dictated and finalized at location A.
[2024-06-09 16:56] VITALS: BP 146/87; PULSE 71; RESP 18; TEMP 36.4; O2SAT 100
--- NOTE | 2024-06-09 18:59 | ED.LOWEXIN ---
HPI - Extremity Injury (Lower) General Chief Complaint: Extremity Injury, Lower Stated Complaint: knee pain Time Seen by Provider: 06/09/24 18:58 Source: patient and family Mode of arrival: ambulatory Limitations: no limitations History of Present Illness HPI Narrative: Patient presents with various complaints after tripping and falling approximately 3:30 p.m.. He she has not yet taken anything for pain. She landed on her bilateral knees which have abrasions. this was also a fall on outstretched hand, her left. She is right-hand dominant. She is having some left forearm pain where she has an abrasion but also notes that her left proximal arm and left shoulder hurt and she states she has a history of what she believes was a rotator cuff tear there. No prior orthopedic surgeries or hardware. Not on anticoagulation. She did not strike her head. She is also complaining of pain at her left great toe which is ecchymotic. Related Data Home Medications Medication Instructions Recorded Confirmed tamsulosin 0.4 mg capsule (Flomax) 0.4 mg PO HS 11/12/20 11/15/20 Allergies Allergy/AdvReac Type Severity Reaction Status Date / Time sulfamethoxazole Allergy Intermediate Rash Verified 06/09/24 18:34 [From Bactrim] trimethoprim [From Bactrim] Allergy Intermediate Rash Verified 06/09/24 18:34 Penicillins Allergy Mild RASH, Verified 06/09/24 18:34 VOMITING codeine AdvReac Mild VISUAL Verified 06/09/24 18:34 DISTURBANCE zinc AdvReac Mild UPSET Verified 06/09/24 18:34 STOMACH PMFSH Past Medical History Medical History Anxiety GERD (gastroesophageal reflux disease) Hx of migraines Patient denies significant medical history Right hand dominant Surgical History Surgical History (Updated 11/10/20 @ 05:21 by Jocelyne Kearney MD) H/O lithotripsy Social History Social History Smoking packs per day: 0.25 Smoking cigarettes per day: 5.0 Years smoked: 9 Smoking pack-years: 2.25 Smoking status: Current every day smoker Additional smoking assessment comments: STATES 1PK/WEEK Alcohol intake: current Drinks per week: 3 Substance use: never Substance use type: does not use Living arrangements: with family Gender identity (if verbalized by the patient): Male Spiritual care concerns: No Exam Narrative: GENERAL: Well-appearing, well-nourished, and in no acute distress. HEAD: Normocephalic, atraumatic. EYES: Non injected, non icteric ENT: Nares clear, no rhinorrhea or epistaxis. NECK: Supple. CHEST: Speaking in full sentences. No respiratory distress. HEART: Regular rate and rhythm. . ABDOMEN: Soft, nondistended. EXTREMITIES: Normal range of motion. No lower extremity edema. the left great toe with ecchymosis but without nail injury. Patient is able to demonstrate bilateral dorsiflexion and plantar flexion of the ankles 5/5 in addition to bilateral knee extension and flexion 5/5 and bilateral hip flexion, abduction, and adduction. she ambulates with steady gait. SKIN: Warm, dry. Abrasion on base of plan, left hand. Bilateral knee abrasions. Very superficial left forearm/elbow abrasion overlying lateral aspect. None actively bleeding. NEURO: No focal deficits. Alert and oriented x3. sensation intact throughout bilateral and lower extremity particularly over deltoid. PSYCH: Normal mood and affect. Course Vital Signs Vital signs: Vital Signs Temperature 97.5 F L 06/09/24 16:56 Pulse Rate 71 06/09/24 16:56 Respiratory Rate 18 06/09/24 16:56 Blood Pressure 146/87 H 06/09/24 16:56 Pulse Oximetry 100 06/09/24 16:56 Oxygen Delivery Room Air 06/09/24 16:56 Temperature 98.2 F 06/09/24 21:36 Pulse Rate 86 06/09/24 21:36 Respiratory Rate 16 06/09/24 21:36 Blood Pressure 126/76 06/09/24 21:36 Pulse Oximetry 98 06/09/24 2
[2024-06-09] MEDS: HYDROcodone/acetaminophen (*CRX) 5-325 MG TABLET 1 TAB PO (20:00)
[2024-06-09 21:36] VITALS: BP 126/76; PULSE 86; RESP 16; TEMP 36.8; O2SAT 98
== END 2024-06-09 21:37 | disposition home or self-care (01) ==
PROVIDERS: Emergency Provider Student in an Organized Health Care Education/Training Program; PCP Registered Nurse
DX: S80.212A Abrasion, left knee, initial encounter (principal); S80.211A Abrasion, right knee, initial encounter; S60.512A Abrasion of left hand, initial encounter; S92.425A Nondisplaced fracture of distal phalanx of left great toe, initial encounter for closed fracture; M19.022 Primary osteoarthritis, left elbow; M19.012 Primary osteoarthritis, left shoulder; K21.9 Gastro-esophageal reflux disease without esophagitis; F17.210 Nicotine dependence, cigarettes, uncomplicated; W01.0XXA Fall on same level from slipping, tripping and stumbling without subsequent striking against object, initial encounter
CPT/HCPCS: 73030; 73060; 73130; 73562; 73660; 99284; A9270

== ENCOUNTER 2024-07-03 09:51 | Outpatient (CLI) | payer OTHER, SELFPAY ==
--- NOTE | ~2024-07-03 | US_ITS ---
EXAMINATION: US thyroid DATE: 07/03/2024 10:05 INDICATION: Enlarged thyroid. TECHNIQUE: Multiple ultrasound images of the thyroid were obtained. COMPARISON: Ultrasound 05/18/2023 FINDINGS: The right thyroid lobe measures 5.3 x 1.9 x 1.6 cm. The left thyroid lobe measures 4.5 x 1.5 x 1.7 c m. There is normal echotexture and echogenicity throughout the thyroid gland. No discrete nodules id entified. Normal vascular flow is present. IMPRESSION: 1. Normal thyroid. Reviewed, dictated and finalized at location A. IMPRESSION: 1. Normal thyroid.
== END 2024-07-03 09:52 | disposition home or self-care (01) ==
PROVIDERS: PCP Registered Nurse; Visit Provider Registered Nurse
DX: E04.9 Nontoxic goiter, unspecified (principal)
CPT/HCPCS: 76536

== ENCOUNTER 2024-11-02 11:31 | Outpatient (CLI) | payer OTHER, SELFPAY ==
--- NOTE | ~2024-11-02 | MM_ITS ---
EXAMINATION: MM screening ronnie BI w boubacar HISTORY: Screening TECHNIQUE: Craniocaudal and mediolateral oblique 3-D tomosynthesis images were obtained and synthetic 2-D images were generated. CAD analysis was submitted and interpreted. COMPARISON: Comparison to multiple prior studies sequentially, with oldest reviewed study dated 05/18. BREAST PARENCHYMAL COMPOSITION: Not Dense: The breasts are almost entirely fatty. FINDINGS: There is no evidence of suspicious mass, calcification, or architectural distortion to sugg est malignancy in either breast. There has been no suspicious interval change. IMPRESSION: 1. No mammographic evidence of malignancy. 2. Recommend routine screening mammography in one year. BI-RADS Category 1: Negative Reviewed, dictated and finalized at location B. L BREAKFAST ATTENDANT
== END 2024-11-02 11:32 | disposition home or self-care (01) ==
PROVIDERS: PCP Registered Nurse; Visit Provider Registered Nurse
DX: Z12.31 Encounter for screening mammogram for malignant neoplasm of breast (principal)
CPT/HCPCS: 77063; 77067

== ENCOUNTER 2025-07-13 12:51 | Outpatient (CLI) | payer OTHER, SELFPAY ==
--- NOTE | ~2025-07-13 | CT_ITS ---
EXAMINATION: CT brain wo/w con, 07/13/2025 13:06 CDT HISTORY: AMS COMPARISON: No comparisons available. Technique: Axial images obtained of the brain without and with intravenous contrast. One or more of the following dose reduction techniques were used: automated exposure control, adjustment of the mA and/or kV according to patient size, use of iterative reconstruction technique. Findings: No acute infarct or parenchymal hemorrhage. No abnormal enhancement No abnormal mass or mass effect. No midline shift. No extra-axial fluid collections. No hydrocephalus. Mastoid air cells unremarkable. Sinuses and orbits unremarkable. No acute fracture. No significant facial or scalp soft tissue swelling evident. No radiopaque foreign body is seen. Impression: 1.No acute intracranial abnormality. Reviewed, dictated and finalized at location A. Impression: 1.No acute intracranial abnormality.
--- OUTSIDE RECORDS SUMMARY | 2025-07-13 12:57 | XMS_ITS | Encounter Summary ---
Author Organization [facility] Address [address] [place] [id number] Care Team Providers Care Civil Cad Tech Name Role Phone Martita Ramírez Primary Care Provider [phone] Martita Ramírez Unavailable [phone] Encounter Details Date Type Department Care Team (Late st Contact Info) Description 02/11/2022 MyChart Message Enc [facility] Family & Internal Medicine [facility] [address] [place] [address] Martita Ramírez APNP [address], [place] [id number] MRI order Social History Tobacco Use Types Packs/Day Years Used Date Smoking Tobacco: Every Day Cigarettes Smokeless Tobacco: Never Comments:Pack per week-provi yovani to councel Alcohol Use Standard Drinks/Week Comments Yes 0 (1 standard drink = 0.6 oz pure alcohol) 2-3 drinks a couple times a week AUDIT-C Answer Date Recorded Frequency of Alcohol Consumption 2-4 times a wed02/06/2019 Average Number of Drinks 1 or 2 019 Frequency of Binge Drinking Never 01/23 PHQ-2 Answer Date Recorded PHQ-2 Score - If the patient scores above 3, please move on to questions 3-9 0 07/12/2020 Comments No Sex and Gender Information Value Date Recorded Sex Assigned at Female 01/11/2025 8:59 AM CDT Legal Sex Female 1:02 PM CDT Gender Identity Not on file Sexual Orientation Not on file documented as of this encounter Plan of Treatment Not on file documented as of this encounter Visit Diagnoses Not on filedocumented in this encounter Care Teams Civil Cad Tech Relationship Specialty Start Date End Date Martita Ramírez APNP [address] [place] [address] PCP - General NURSE PRACTITIONER 07/12/20 Martita Ramírez APNP [address] [place] [address] NURSE PRACTITIONER 07/12/20 documented as of this encounter
--- OUTSIDE RECORDS SUMMARY | 2025-07-13 12:57 | XMS_ITS | Encounter Summary ---
Author Organization [facility] Address [address] [place] [address] Care Team Providers Care Trial Consultant Name Role Phone Martita Ramírez Primary Care Provider [phone] Martita Ramírez Unavailable [phone] Reason for Visit * Reason Onset Date Comments Radiology Results 11/13/2024 Mammogram Encounter Details Date Type Department Care Team (Late st Contact Info) Description 11/13/2024 Telephone [facility] Family & Internal Medicine [facility] [address] [place] [address] Martita Ramírez APNP [address] [place] [address] Radiology Results (Mammogram 11/02/24) Social History Tobacco Use Types Packs/Day Years Used Date Smoking Tobacco: Former Cigarettes Q uit: 07/17/2021 Cigars Smokeless Tobacco: Never Alcohol Use Standard Drinks/Week Comments Not Currently 0 (1 standard drink = 0.6 oz pur e alcohol) Occasionally not every week AUDIT-C Answer Date Recorded Frequency of Alcohol Consumption 2-4 times a wed02/06/2019 Average Number of Drinks 1 or 2 019 Frequency of Binge Drinking Never 01/23 PHQ-2 Answer Date Recorded Patient Health Questionnaire-2 Score 0 06/01/2024 Comments No Sex and Gender Information Value Date Recorded Sex Assigned at Female 01/11/2025 8:59 AM CDT Legal Sex Female 1:02 PM CDT Gender Identity Not on file Sexual Orientation Not on file documented as of this encounter Plan of Treatment Not on file documented as of this encounter Visit Diagnoses Diagnosis Encounter for screening mammogram for malignant neoplasm of breast- Primary Other screening mammogram documented in this encounter Care Teams Trial Consultant Relationship Specialty Start Date End Date Martita Ramírez APNP [address] [place] [id number] PCP - General NURSE PRACTITIONER 07/12/20 Martita Ramírez APNP [address] [place] [address] NURSE PRACTITIONER 07/12/20 documented as of this encounter
--- OUTSIDE RECORDS SUMMARY | 2025-07-13 12:57 | XMS_ITS | Encounter Summary ---
Author Organization [facility] Address [address] [place] [address] Care Team Providers Care Steam Oven Operator Name Role Phone Martita Ramírez Primary Care Provider [phone] Martita Ramírez Unavailable [phone] Encounter Details Date Type Department Care Team (Late st Contact Info) Description 08/20/2023 Ingenuity Systemst Message Enc [facility] Family & Internal Medicine [facility] [address] [place] [address] Martita Ramírez APNP [address] [place], [place] [phone] Sleep Study Results Social History Tobacco Use Types Packs/Day Years Used Date Smoking Tobacco: Former Cigarettes Q uit: 07/17/2021 Cigars Smokeless Tobacco: Never Comments:Pack per week-provi yovani to councel Alcohol Use Standard Drinks/Week Comments Not Currently 0 (1 standard drink = 0.6 oz pur e alcohol) Occasionally not every week AUDIT-C Answer Date Recorded Frequency of Alcohol Consumption 2-4 times a wed02/06/2019 Average Number of Drinks 1 or 2 019 Frequency of Binge Drinking Never 01/23 PHQ-2 Answer Date Recorded Patient Health Questionnaire-2 Score 0 06/03/2023 Comments No Sex and Gender Information Value Date Recorded Sex Assigned at Female 01/11/2025 8:59 AM CDT Legal Sex Female 1:02 PM CDT Gender Identity Not on file Sexual Orientation Not on file documented as of this encounter Plan of Treatment Not on file documented as of this encounter Visit Diagnoses Not on filedocumented in this encounter Care Teams Steam Oven Operator Relationship Specialty Start Date End Date Martita Ramríez APNP [address] [place] [address] PCP - General NURSE PRACTITIONER 07/12/20 Martita Ramírez APNP [address] [place] [address] NURSE PRACTITIONER 07/12/20 documented as of this encounter
--- OUTSIDE RECORDS SUMMARY | 2025-07-13 12:58 | XMS_ITS | Clinical Summary ---
Author Organization [facility] Address Formerly [facility], later [facility] [place] [address] Care Team Providers Care Soft Boarder Name Role Phone Martita Ramírez Primary Care Provider [phone] Martita Ramírez Unavailable [phone] Allergies Active Allergy Reactions Criticality Noted Date Comments Amoxicillin Diarrhea,GI Upset,Rash Low 12/04/2021 Codeine Hallucinations 02/06/2019 Penicillins Rash,Nausea Only Low 02/06/2019 Sulfamethoxazole-Trimetho prim Dizziness,Headache,Hives,Itc kd,Nausea Only,Rash Low 12/04/2021 Medications Loratadine 10 MG Cap Take 1 tablet by mouth as needed. Active Acetaminophen (TYLENOL EXTRA STRENGTH OR) Active Cholecalciferol (D3 1999) 50 MCG (1999 UT) Cap 02/22/2023 Active albuterol sulfate HFA 108 (90 Base) MCG/ACT inhaler TAKE 1-2 PUFFS BY MOUTH (INHALATION) EVERY 4 HOURS NEEDED FOR WHEEZING 01/27/2024 Active ibuprofen (MOTRIN) 200 MG tablet Take 2 tablets (400 mg total) by mouth every 6 (six) hours as needed for Pain. Active Cetirizine HCl 10 MG/ML Solution 12/27/2024 Active magnesium 250 MG tablet 01/01/2025 Active Active Problems Problem Noted Date Diagnosed Date Esophageal dysphagia 06/03/2023 Overview (06/03/2023): Added automatically from request for surgery [id number] Constipation, unspecified constipation type 05/25 Overview (06/03/2023): Added automatically from request for surgery [id number] Labral tear of shoulder 02/22/2022 Seasonal allergies 07/12/2020 Kidney stones 03/16/2020 Asymptomatic varicose veins of both lower extrem ities 02/08/2019 Vitamin D deficiency 02/06/2019 Chronic midline low back pain with left-sided sc iatica 02/06/2019 Resolved Problems Problem Noted Date Diagnosed Date Resolved Date GERD (gastroesophageal reflux disease) 06/03/2023 06/01/2024 Overview (06/03/2023): Added automatically from request for surgery [id number] Current smoker 07/12/2020 03/03/2023 Immunizations Immunization Administration Dates Next Due Influenza Adult (Generic) 08/16/2024,01/2023,09/19/2022,2020 MODERNA COVID-19 (12+) MRNA, LNP-S, PF, 100 MCG/ 0.5 ML DOSE 02/10/2021,01/13/2021 MODERNA COVID-19 (CONFERENCE SERVICE COORDINATOR JEANMARIE OCTAVIO), MRNA, LNP-S, PF, 50 MCG/ 0.25 ML DOSE 09/20/2021 Pneumococcal (Prevnar 20) 03/03/2023 Shingrix 02/19/2024,08/28/2023 Tdap (Adacel) 03/03/2023 Family History Medical History Relation Comments Depression Brother 1 Early Hearing Loss Brother 2 at 50 or sunitha ier Mental Health Brother 2 COPD Father Recently Diagnos ed at 83 Diabetes Father Early Hearing Loss Father abdominal aortic annyurism Father Mental Health Maternal Aunt 1 Mental Health Maternal Aunt 2 Cancer Maternal Grandfather Cancer late in life approx 90 Cancer Maternal Grandmother Early Maternal Grandmother Pancreatic Cancer Stomach cancer Maternal Grandmother Had Stomach cancer survived then from Pancreatic Cancer Mental Health Maternal Uncle Hypertension Mother Cancer Paternal Aunt 1 Breast Cancer ea rly. Lump removed Cancer Paternal Aunt 2 Survived Breast Cancer Early Paternal Grandfather Abdominal A ortic Aneurysm Early Hearing Loss Paternal Grandfather Cancer Paternal Grandmother pancreatic Relation Status Comments Brother 1 Brother 2 Father Maternal Aunt 1 Maternal Aunt 2 Maternal Grandfather Maternal Grandmother Maternal Uncle Mother Paternal Aunt 1 Paternal Aunt 2 Paternal Grandfather Paternal Grandmother Social History Tobacco Use Types Packs/Day Years Used Date Smoking Tobacco: Former Cigarettes Q uit: 07/17/2021 Cigars Smokeless Tobacco: Never Tobacco Cessation:Counseling Given: Yes Alcohol Use Standard Drinks/Week Comments Not Currently 0 (1 standard drink = 0.6 oz pur e alcohol) Occasionally not every week AUDIT-C Answer Date Recorded Frequency of Alcohol Consumption 2-4 times a mon 02/06/2019 Average Number of Drinks 1 or 2 019 Frequency of Binge Drinking Never 01/23 PHQ-2 Answer Date Recorded Patient Health Questionnaire-2 Score 0 01/11/2025 Comments No Sex and Gender Information Value Date Recorded Sex Assigned at Female 01/11/2025 8:59 AM CDT Legal Sex Female 1:02 PM CDT Gender Identity Not on file Sexual Orientation Not on file Last Filed Vital Signs Vital Sign Reading Time Taken Comments Blood Pressure 124/70 01/11/2025 8:59 AM CDT Pulse 87 01/11/2025 8:59 AM CDT Temperature 36.1 C (97 F) 01/11/2025 8:59 AM CDT Respiratory Rate 16 01/11/2025 8:59 AM CDT Oxygen Saturation 97% 01/11/2025 8:59 AM CDT Inhaled Oxygen Concentration - - Weight 96.3 kg (212 lb 6.4 oz) 01/11/2025 8:59 A M CDT Height 167.6 cm (5' 6) 01/11/2025 8:59 AM CDT Body Mass Index 34.28 01/11/2025 8:59 AM CDT Plan of Treatment Health Maintenance Due Date Last Done Comments Hepatitis B Vaccines (1 of 3 - 19+ 3-dose series) 1992 Annual Physical 06/01/2025 06/01/2024, 03/26, 03/03/2023, Additional history exists Cervical Cancer Screening Pap Smear (Age 30 to 64) Every 3 Years 04/20/2026 04/20/2023 Mammogram Screening 11/02/2026 11/02/2024, 05/18/2023, 01/03/2021 Cervical Cancer Screening Pap with HPV Testing (Age 30 to 64) Every 5 Years 04/20/2028 04/20/2023 Cervical Cancer Screening with HPV 04/20/2028 DTaP, Tdap and Td Vaccines (2 - Td or Tdap) 03/03/2033 03/03/2023 Colorectal Cancer Screening Colonoscopy (10 Years) 11/22/2033 11/22/2023, 11/22/2023 Pneumococcal Vaccine: 50+ Years Completed 03/03/2023 Hepatitis C Completed 11/23/2023, 07/29/2020 Zoster Vaccines Completed 02/19/2024, 08/28/2023 COVID-19 Vaccine Completed 08/18/2024, 01/2023, 09/19/2022, Additional history exists PHQ-2 (Physician [place]) Completed 01/11/2025 Meningococcal B Vaccine Aged Out No l onger eligible based on patient's age to complete this topic Meningococcal Vaccine Aged Out No fantasma omaira eligible based on patient's age to complete this topic RSV Immunizations Under 20 Months Aged Out No longer eligible based on patient's age to complete this topic Procedures Procedure Name Priority Date/Time Associated Diagnosis Comments MAMMOGRAM GENERIC (SCAN ORDER) 11/02/2024 HEPATITIS C ANTIBODY W/RFX TO HCV RNA Routine 11/23/2023 10:25 AM [employer] Exposure to hepatitis C COLONOSCOPY Routine 11/22/2023 11:08 AM [employer] HUMAN PAPILLOMAVIRUS, HIGH-RISK TYPES 04/20/2023 2:45 PM CDT CYTOPATH CERV/VAG THIN LAYER Routine 04/20/2023 2:45 PM CDT Encounter for annual routine gynecological examination Screening for cervical cancer from Last 3 Months or Most Recently Relevant to Health Maintenance Results * MAMMOGRAM GENERIC (SCAN ORDER) (11/02/2024) Anatomical Region Laterality Modality Other 11/02/2024 [facility] Scanned SCANNING Final Resu lt * HEPATITIS C ANTIBODY W/RFX TO HCV RNA ([facility] ONLY) (11/23/2023 10:25 AM [employer]) HEPATITIS C AB Non Reactive Non Reacti [facility] 1 INTERPRETATION Comment [facility] 1 Comment: Not infected with HCV unless early or acute infection is suspected (which may be delayed in an immunocompromised individual), or other evidence exists to indicate HCV infection. 11/23/2023 10:2 5 AM [employer] 11/23/2023 Narrative [facility] - 11/24/2023 7:10 AM [employer] Performed at: [address] [id number] Utilities Equipment Repairer: Jesu Espinal PhD, Phone: [phone] Martita [facility] [employer] Final Resul t Performing Organization Address [facility] Co de Phone Number [facility] [address] [phone] [facility] 1 * HUMAN PAPILLOMAVIRUS, HIGH-RISK TYPES (04/20/2023 2:45 PM CDT) HPV APTIMA Negative Negative [facility] 1 Comment: This nucleic acid amplification test detects fourteen high-risk HPV types (16,18,31,33,35,39,45,51,52,56,58,59,66,68) without differentiation. 04/20/2023 2:45 PM CDT 04/20/2023 Comment:CERVIX HPV TESTING?- > Narrative [facility] - 05/04/2023 2:10 PM CDT Performed at: [address] [id number] Utilities Equipment Repairer: Marcia Rosales MD, Phone: [phone] Specimen Comment: Source.............Cervix Specimen Comment: No. of containers..01 ThinPrep Vial Martita SMART PATHOLOGY/CYTOLOGY ORDERABL ES Final Result Performing Organization Address [facility] Co de Phone Number [facility] [address] [phone] [facility] 1 * Cytopath Cerv/Vag Thin Layer (04/20/2023 2:45 PM CDT) PRIMARY DIAGNOSIS: Comment [facility] 1 Comment:NEGATIVE FOR INTRAEP ITHELIAL LESION OR MALIGNANCY. ADEQUACY (SUREPATH) Comment [facility] 1 Comment:Satisfactory for trung luation. No endocervical component is identified. PRIMARY DIAGNOSIS: Comment [facility] 1 Comment: Z01.419 Z12.4 PERFORMED BY Comment [facility] 1 Comment:Jay Jay Wetzel chnologist (ASCP) OBSERVATIONS (U) . [facility] 1 NOTE Comment [facility] 1 Comment: The Pap smear is a screening test designed to aid in the detection of premalignant and malignant conditions of the uterine cervix. It is not a diagnostic procedure and should not be used as the sole means of detecting cervical cancer. Both false-positive and false-negative reports do occur. METHOD Comment [facility] 1 Comment: This liquid based ThinPrep(R) pap test was screened with the use of an image guided system. COMMENT Comment [facility] 1 Comment: The HPV DNA reflex criteria were not met with this specimen result therefore, no HPV testing was performed. CERVIX UTERI STRUCTURE / Unknown 04/20/2023 2:45 PM CDT 04/20/2023 Comment:CERVIX HPV TESTING?- > Narrative [facility] - 04/22/2023 8:08 PM CDT Performed at: 01 - [address] [id number] Utilities Equipment Repairer: Marcia Rosales MD, Phone: [phone] Specimen Comment: [id number] Specimen Comment: Source.............Cervix Specimen Comment: No. of containers..01 ThinPrep Vial Martita SMART PATHOLOGY/CYTOLOGY ORDERABL ES Final Result Performing Organization Address City/State/[facility] Co de Phone Number [facility] [address] [place] [address] [facility] 1 from Last 3 Months or Most Recently Relevant to [place] [address] [employer] Care Teams Soft Boarder Relationship Specialty Start Date End Date Martita Ramírez APNP [address] [place] [phone] PCP - General NURSE PRACTITIONER 07/12/20 Martita Ramírez APNP [address] [place] [id number] NURSE PRACTITIONER 07/12/20
== END 2025-07-13 12:52 | disposition home or self-care (01) ==
PROVIDERS: PCP Family Medicine; Visit Provider Nurse Practitioner Family
DX: R41.82 Altered mental status, unspecified (principal); R47.1 Dysarthria and anarthria
CPT/HCPCS: 70470; Q9967